=== PATIENT | male | born 1950 | race Caucasian/White ===

== ENCOUNTER 2022-09-23 10:43 | Day surgery (SDC) | payer MEDICARE ==
[2022-09-16 14:02] LABS: BASOPHILS % (AUTO) 0.5 % (0-1); EOSINOPHILS # (AUTO) 0.1 X10'3 (0-0.9); EOSINOPHILS % (AUTO) 1.1 % (0-6); HEMATOCRIT 48.5 % (42.0-52.0); LYMPHOCYTES # (AUTO) 1.2 X10'3 (1.1-4.8); LYMPHOCYTES % (AUTO) 13.4 % (21-51); MEAN CORPUSCULAR HEMOGLOBIN 32.2 PG (27.0-31.0); MEAN CORPUSCULAR VOLUME 97.4 FL (78-98); MEAN PLATELET VOLUME 9.3 FL (7.4-10.4); MONOCYTES # (AUTO) 0.9 X10'3 (0-0.9); MONOCYTES % (AUTO) 10.9 % (2-12); NEUTROPHILS # (AUTO) 6.4 X10'3 (1.8-7.7); NEUTROPHILS % (AUTO) 74.1 % (42-75); PLATELET COUNT 141 X10'3 (140-440); RED BLOOD COUNT 4.97 X10'6 (4.70-6.10); RED CELL DISTRIBUTION WIDTH 14.9 % (11.5-14.5); WHITE BLOOD COUNT 8.7 X10'3 (4.5-11.0)
[2022-09-16 14:07] LABS: ALBUMIN 3.7 G/DL (3.4-5.0); ANION GAP 6 (8-16); BLOOD UREA NITROGEN 25 MG/DL (7-18); BUN/CREATININE RATIO 18.7 (5.4-32.0); CALCIUM 9.2 MG/DL (8.5-10.1); CHLORIDE 104 MMOL/L (99-107); CREATININE 1.34 MG/DL (0.60-1.10); GLUCOSE 102 MG/DL (70-104); POTASSIUM 4.2 MMOL/L (3.5-5.1); SODIUM 141 MMOL/L (135-145); TOTAL CARBON DIOXIDE 30.7 MMOL/L (24-32); eGFR 53 ML/MIN
[2022-09-16 14:11] LABS: APTT 30 SECONDS (22-32)
[2022-09-23] VITALS (10 sets, daily range): BP systolic 124–176; BP diastolic 85–110
[~2022-09-23] VITALS: Ht 175.3 cm; Wt 135.1 kg
[2022-09-23] MEDS ORDERED: fentaNYL/PF 50MCG/1 ML 2ML syringe IV ONE (11:00)
[2022-09-23] MEDS ORDERED: normal saline 1000ml 1,000 ML IV SCH (11:00)
[2022-09-23] MEDS ORDERED: MIDAZolam 1mg/ml 10ml vial IV ONE (11:00)
[2022-09-23] MEDS ORDERED: APIX5TAB3 PO (11:01)
[2022-09-23] MEDS ORDERED: FURO40TA4 (11:01)
[2022-09-23] MEDS ORDERED: FLO0.4C (11:01)
[2022-09-23] MEDS ORDERED: TRAZ-251 (11:01)
[2022-09-23] MEDS ORDERED: LOSA25TA41 (11:01)
[2022-09-23] MEDS ORDERED: AMIO200T61 (11:01)
[2022-09-23] MEDS ORDERED: OXYB5TAB16 (11:01)
[2022-09-23] MEDS ORDERED: CARV25TA2 (11:01)
[2022-09-23] MEDS ORDERED: FINA5TAB11 (11:01)
[2022-09-23] MEDS ORDERED: Carvedilol PO (11:02)
== END 2022-09-23 14:50 | disposition home or self-care (01) ==
LOC: SSTAY O 10:43
PROVIDERS: ATTEND Student in an Organized Health Care Education/Training Program
DX: I48.91 Unspecified atrial fibrillation (principal); I10 Essential (primary) hypertension; Z79.899 Other long term (current) drug therapy; Z98.890 Other specified postprocedural states
CPT/HCPCS: 36415; 80048; 85025; 85610; 85730; 92960; 93005; J2250; J3010; J7030; A4620

== ENCOUNTER 2023-04-13 12:18 | Emergency (ER) | payer MEDICARE ==
[~2023-04-13] VITALS: Ht 175.3 cm; Wt 131.6 kg
[~2023-04-13 12:18] MED LIST: AMI200T; APIX5TAB3 PO; CARV25TA2; FINA5TAB11; FLO0.4C; FURO40TA4; LOSA25TA41; OXYB5TAB16; TRAZ-251
[2023-04-13 12:23] VITALS: BP 194/106
[2023-04-13 12:45] LABS: CLARITY,URINE CLEAR (Clear); COLOR,URINE STRAW (Yellow); GLUCOSE, URINE NEGATIVE (Neg); KETONES,URINE NEGATIVE (Neg); LEUKOCYTE ESTERASE ,URINE NEGATIVE (Neg); NITRITES, URINE NEGATIVE (Neg); OCCULT BLOOD,URINE NEGATIVE (Neg); PH,URINE 6.5 (4.8-8.0); PROTEIN,URINE NEGATIVE (Neg); UROBILINOGEN,URINE 0.2 E.U/dL (0.2-1.0)
[2023-04-13 12:48] LABS: UA COLLECTION TYPE CLN CATCH MIDSTREAM
[2023-04-13 13:14] LABS: BASOPHILS % (AUTO) 0.7 % (0-1); EOSINOPHILS # (AUTO) 0.1 X10'3 (0-0.9); EOSINOPHILS % (AUTO) 1.8 % (0-6); HEMATOCRIT 44.6 % (42.0-52.0); HEMOGLOBIN 14.9 g/dl (14.0-17.9); LYMPHOCYTES # (AUTO) 1.1 X10'3 (1.1-4.8); LYMPHOCYTES % (AUTO) 18.4 % (21-51); MEAN CORPUSCULAR HEMOGLOBIN 32.2 PG (27.0-31.0); MEAN CORPUSCULAR HGB CONC 33.4 g/dL (33.0-36.5); MEAN CORPUSCULAR VOLUME 96.2 FL (78-98); MEAN PLATELET VOLUME 9.5 FL (7.4-10.4); MONOCYTES # (AUTO) 0.6 X10'3 (0-0.9); NEUTROPHILS # (AUTO) 4.2 X10'3 (1.8-7.7); NEUTROPHILS % (AUTO) 69.1 % (42-75); PLATELET COUNT 175 X10'3 (140-440); RED BLOOD COUNT 4.64 X10'6 (4.70-6.10); RED CELL DISTRIBUTION WIDTH 15.7 % (11.5-14.5); WHITE BLOOD COUNT 6.1 X10'3 (4.5-11.0)
[2023-04-13 13:25] LABS: ALANINE AMINOTRANSFERASE 20 U/L (12-78); ALBUMIN 3.5 G/DL (3.4-5.0); ALBUMIN/GLOBULIN RATIO 1.1 (1.1-1.5); ALKALINE PHOSPHATASE 119 IU/L (46-116); ANION GAP 10 (8-16); ASPARTATE AMINO TRANSFERASE 22 U/L (10-37); BILIRUBIN,TOTAL 0.8 MG/DL (0.1-1.0); BLOOD UREA NITROGEN 17 MG/DL (7-18); BUN/CREATININE RATIO 20.5 (10.0-20.0); CALCIUM 8.9 MG/DL (8.5-10.1); CHLORIDE 103 MMOL/L (99-107); CREATININE 0.83 MG/DL (0.60-1.10); GLUCOSE 107 MG/DL (70-104); LIPASE < 50 U/L (73-393); POTASSIUM 4.3 MMOL/L (3.5-5.1); SODIUM 137 MMOL/L (135-145); TOTAL CARBON DIOXIDE 24.2 MMOL/L (24-32); TOTAL PROTEIN 6.8 G/DL (6.4-8.2); eGFR > 90 ML/MIN
== END 2023-04-13 17:02 | disposition home or self-care (01) ==
LOC: ER 12:18
DX: K80.20 Calculus of gallbladder without cholecystitis without obstruction (principal); K80.50 Calculus of bile duct without cholangitis or cholecystitis without obstruction
CPT/HCPCS: 36415; 76700; 76705; 80053; 81003; 83690; 85025; 99284; A4620